=== PATIENT | female | born 1985 | race Caucasian/White ===

== ENCOUNTER 2016-06-23 11:36 | Emergency (ER) | payer OTHER ==
[~2016-06-23] VITALS: Ht 162.6 cm; Wt 63.5 kg
[~2016-06-23 11:36] MED LIST: CALCIUM + D 6001 TAB PO; CLONIDINE HCL0.1 MG PO; CLONIDINE0.1 MG PO; HAIR VITAMINS E1 TAB PO; LAMICTAL150 M1 PO; LATUDA60 M1 PO; LATUDA60 MG PO; MIRENA52 MG; MULTIVITAMIN1 TAB PO; QUETIAPINE FUM100 MG PO; SEROQUEL25 M1 PO; TRAZODONE HCL150 M1 PO
[2016-06-23 11:39] VITALS: BP 118/77
[2016-06-23] MEDS ORDERED: CLONIDINE HCL0.1 MG PO (11:55)
[2016-06-23] MEDS ORDERED: SEROQUEL25 M1 PO (11:55)
[2016-06-23] MEDS ORDERED: LATUDA60 M1 PO (11:55)
--- NOTE | 2016-06-23 11:57 | ED GENERAL ADULT ---
History of Present Illness General Chief Complaint: General Adult Stated Complaint: MED REFILL Source: patient Exam Limitations: no limitations Vital Signs & Intake/Output Vital Signs & Intake/Output Vital Signs Date Time Temp Pulse Resp B/P Pulse O2 O2 Flow FiO2 Ox Delivery Rate 06/23 1139 97.5 94 16 118/77 98 Room Air Allergies Coded Allergies: NO KNOWN ALLERGIES (01/05/16) Reconcile Medications CLONIDINE HCL (Clonidine) 0.1 MG TABLET 1 TAB PO BID MENTAL HEALTH (Reported) Clonidine HCl 0.1 MG TABLET 1 TAB PO BID BIPOLAR/ANXIETY Clonidine HCl 0.1 MG TABLET 1 TAB PO QPM ANXIETY Lamotrigine (Lamictal) 150 MG TABLET 1 TAB PO QHS ANXIETY/DEPRESSION Lurasidone HCl (Latuda) 60 MG TABLET 1 TAB PO QPM depression Lurasidone HCl (Latuda) 60 MG TABLET 1 TAB PO QPM DEPRESSION Lurasidone HCl (Latuda) 60 MG TABLET 1 TAB PO QPM DEPRESSION Quetiapine Fumarate (Seroquel) 25 MG TABLET 1 TAB PO DAILY bipolar/depression Quetiapine Fumarate (Seroquel) 25 MG TABLET 3 TAB PO QPM DEPRESSION Trazodone HCl 150 MG TABLET 1 TAB PO QPM MENTAL HEALTH Triage Note: 30 Y/0 FEMALE REQUESTING REFILL OF MEDS (LATUDA, KLONIDINE AND SEROQUEL). LAST DOSES 2 DAYS AGO. Triage Nurses Notes Reviewed? yes Onset: Abrupt Timing: recent history : No Patient currently breastfeeds: No HPI: 30-year-old female comes into emergency room requesting a medication refill. Patient ran out of her latuda, seroquel, and clonidine. Patient reports that she has appointment pending with the psychiatrist and a little bit over a month. Patient reports that her primary care doctor gave her temporary prescription. Patient has been on these meds for a while. pt denies any suicidal or homicidal ideation. Denies any symptoms at all. Patient is here for medication refill. Denies any other associated symptoms. (YUKI BRAVO) Past History Travel History Traveled to [place] past 21 day No Medical History Any Pertinent Medical History? 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 No (YUKI BRAVO) Review of Systems Review of Systems Constitutional: Reports: no symptoms. EENTM: Reports: no symptoms. Respiratory: Reports: no symptoms. Cardiovascular: Reports: no symptoms. GI: Reports: no symptoms. Genitourinary: Reports: no symptoms. Musculoskeletal: Reports: no symptoms. Skin: Reports: no symptoms. Neurological/Psychological: Reports: no symptoms. Hematologic/Endocrine: Reports: no symptoms. Immunologic/Allergic: Reports: no symptoms. All Other Systems: Reviewed and Negative (YUKI BRAVO) Physical Exam Physical Exam General Appearance: well developed/nourished, no apparent distress, alert Head: atraumatic, normal appearance Eyes: Bilateral: normal appearance, EOMI. Ears, Nose, Throat: normal ENT inspection, hearing grossly normal Neck: normal inspection Respiratory: no respiratory distress Back: normal inspection Extremities: normal range of motion Neurologic/Psych: awake, alert, oriented x 3, normal gait, normal mood/affect Skin: intact, normal color Core Measures ACS in differential dx? No CVA/TIA Diagnosis: No Severe Sepsis Present: No Septic Shock Present: No (YUKI BRAVO) Progress Differential Diagnoses I considered the following diagnoses in my evaluation of the patient: Depression, anxiety, bipolar, borderline personality, Plan of Care: see below Initial ED EKG: none (YUKI BRAVO) Departure Departure Disposition: HOME OR SELF CARE Condition: Stable Clinical Impression Primary Impression: Medication refill Referrals: JANETT HOPE MD (PCP/Family) Additional Instructions: Take Latuda, Seroquel, and clonidine as prescribed. Follow-up with your primary care doctor. Follow-up with your psychiatrist. Return if any other concerns. Departure Forms: Customer Survey General Discharge Information Prescriptions: Current Visit Scripts Lurasidone HCl (Latuda) 1 TAB PO QPM #30 TAB Clonidine HCl 1 TAB PO BID #60 TAB Quetiapine Fumarate (Seroquel) 1 TAB PO DAILY #90 TAB (YUKI BRAVO) PA/MITTEN STITCHER Co-Sign Statement Statement: ED Attending supervision documentation- [] I saw and evaluated the patient. I have also reviewed all the pertinent lab results and diagnostic results. I agree with the findings and the plan of care as documented in the PA's/MITTEN STITCHER's documentation. [x] I have reviewed the ED Record and agree with the PA's/MITTEN STITCHER's documentation. [] Additions or exceptions (if any) to the PAs/MITTEN STITCHER's note and plan are summarized below: [] (LUIS DYER DO) Critical Care Note Critical Care Note Critical Care Time: non-applicable (YUKI BRAVO)
== END 2016-06-23 12:03 ==
LOC: ERH 11:36
DX: Z76.0 Encounter for issue of repeat prescription (principal)

== ENCOUNTER 2016-10-12 14:19 | Emergency (ER) | payer OTHER ==
[~2016-10-12] VITALS: Ht 162.6 cm; Wt 59.0 kg
[2016-10-12 14:22] VITALS: BP 116/77
--- NOTE | 2016-10-12 14:51 | ED GENERAL ADULT ---
History of Present Illness General Chief Complaint: General Adult Stated Complaint: MED REFILL Source: patient Exam Limitations: no limitations Vital Signs & Intake/Output Vital Signs & Intake/Output Vital Signs Date Time Temp Pulse Resp B/P B/P Pulse O2 O2 Flow FiO2 Mean Ox Delivery Rate 10/12 1422 98.3 112 16 116/77 94 Room Air Allergies Coded Allergies: No Known Allergies (10/12/16) Reconcile Medications CLONIDINE HCL (Clonidine) 0.1 MG TABLET 1 TAB PO BID MENTAL HEALTH (Reported) Clonidine HCl 0.1 MG TABLET 1 TAB PO BID ANXIETY Clonidine HCl 0.1 MG TABLET 1 TAB PO BID BIPOLAR/ANXIETY Clonidine HCl 0.1 MG TABLET 1 TAB PO QPM ANXIETY Lamotrigine (Lamictal) 150 MG TABLET 1 TAB PO QHS ANXIETY/DEPRESSION Lurasidone HCl (Latuda) 60 MG TABLET 1 TAB PO QPM ANXIETY/INSOMNIA Lurasidone HCl (Latuda) 60 MG TABLET 1 TAB PO QPM depression Lurasidone HCl (Latuda) 60 MG TABLET 1 TAB PO QPM DEPRESSION Lurasidone HCl (Latuda) 60 MG TABLET 1 TAB PO QPM DEPRESSION Quetiapine Fumarate (Seroquel) 25 MG TABLET 3 TAB PO QPM ANXIETY Quetiapine Fumarate (Seroquel) 25 MG TABLET 1 TAB PO DAILY bipolar/depression Quetiapine Fumarate (Seroquel) 25 MG TABLET 3 TAB PO QPM DEPRESSION Trazodone HCl 150 MG TABLET 1 TAB PO QPM MENTAL HEALTH Triage Note: PT TO ED REQUESTING REFILL OF LATUDA, SEROQUEL AND CLONIDINE. Triage Nurses Notes Reviewed? yes : No Patient currently breastfeeds: No HPI: pt presents for evaluation of anxiety. pt has run out of her medications. her pcp can no longer fill the prescriptions because she is not a psychiatrist. pt is worried her anxiety will get worse. Past History Travel History Traveled to [place] past 21 day No Medical History Any Pertinent Medical History? 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 No Review of Systems Review of Systems Constitutional: Reports: no symptoms. EENTM: Reports: no symptoms. Respiratory: Reports: no symptoms. Cardiovascular: Reports: no symptoms. GI: Reports: no symptoms. Genitourinary: Reports: no symptoms. Musculoskeletal: Reports: no symptoms. Skin: Reports: no symptoms. Neurological/Psychological: Reports: see HPI. Hematologic/Endocrine: Reports: no symptoms. Immunologic/Allergic: Reports: no symptoms. All Other Systems: Reviewed and Negative Physical Exam Physical Exam General Appearance: see below Comments: gen: wn, wd, no acute resp distress head: nc/at eyes: normal inspection ears: normal inspection nose: normal inspection throat/mouth: moist mucosa neck: supple, from, no goiter heart: rrr, no mrg lungs: cta bilaterally with normal air entry chest: nt abd: soft, nd, normal bowel sounds, nontender back: normal range of motion ext: normal range of motion, no cyanosis, clubbing or edema skin: warm and dry circulatory: normal radial pulses neuro: cn 2-12 grossly intact, speech clear psych: calm, cooperative, no apparent delusion, hallucinations or pressured speech Core Measures ACS in differential dx? No CVA/TIA Diagnosis: No Severe Sepsis Present: No Septic Shock Present: No Progress Differential Diagnoses I considered the following diagnoses in my evaluation of the patient: anxiety, withdrawal Plan of Care: cont current medications Initial ED EKG: none Departure Departure Disposition: HOME OR SELF CARE Condition: Stable Clinical Impression Primary Impression: Anxiety Referrals: JANETT HOPE MD (PCP/Family) Additional Instructions: Take medications as prescribed. Follow-up with a psychiatrist as soon as possible. Return if any concerns or sudden worsening. Departure Forms: Customer Survey General Discharge Information Prescriptions: Current Visit Scripts Lurasidone HCl (Latuda) 1 TAB PO QPM #7 TAB Quetiapine Fumarate (Seroquel) 3 TAB PO QPM #21 TAB Clonidine HCl 1 TAB PO BID #14 TAB Critical Care Note Critical Care Note Critical Care Time: non-applicable
[2016-10-12] MEDS ORDERED: LATUDA60 M1 PO (15:00)
[2016-10-12] MEDS ORDERED: CLONIDINE HCL0.1 MG PO (15:00)
[2016-10-12] MEDS ORDERED: SEROQUEL25 M1 PO (15:00)
== END 2016-10-12 15:05 ==
LOC: ERH 14:19
DX: F41.9 Anxiety disorder, unspecified (principal)